=== PATIENT | female | born 1950 | race Hispanic/Latino ===

== ENCOUNTER 2021-07-20 10:41 | Emergency (ER) | payer MEDICARE ==
[~2021-07-20] VITALS: Ht 152.4 cm; Wt 60.1 kg
[2021-07-20] MEDS ORDERED: ARMOUR THYROID30 MG (10:59)
[2021-07-20] MEDS ORDERED: CEFTRIAXONE 1 GM VIAL IM ONE (12:00)
[2021-07-20] MEDS ORDERED: DEXAMETHASONE SOD PHOS 10 MG/1 ML VIAL IM ONE (12:00)
[2021-07-20] MEDS ORDERED: CEFDINIR300 MG PO (12:03)
[2021-07-20] MEDS ORDERED: TESSALON PERLE100 MG PO (12:03)
[2021-07-20] MEDS ORDERED: NASONEX17 GM (12:03)
[2021-07-20] MEDS ORDERED: DEXAMETHASONE SOD PHOS INJ 4 MG/ML SDV ONE (12:12)
[2021-07-20] MEDS ORDERED: CEFTRIAXONE 1 GM VIAL ONE (12:12)
== END 2021-07-20 12:18 | disposition home or self-care (01) ==
LOC: FSED 10:45
DX: R05 Cough (principal); J20.9 Acute bronchitis, unspecified; J01.90 Acute sinusitis, unspecified; I10 Essential (primary) hypertension; E03.9 Hypothyroidism, unspecified
CPT/HCPCS: 70140; 71046; 96372; 99283; J0696; J1100 ×2

== ENCOUNTER 2021-07-25 13:27 | Emergency (ER) | payer MEDICARE ==
[~2021-07-25] VITALS: Ht 152.4 cm; Wt 59.9 kg
[~2021-07-25 13:27] MED LIST: ARMOUR THYROID30 MG; CEFDINIR300 MG PO; NASONEX17 GM; TESSALON PERLE100 MG PO
[2021-07-25] MEDS ORDERED: CEFTRIAXONE 1 GM VIAL IM ONE (15:00)
[2021-07-25] MEDS ORDERED: PIPERACILLIN/TAZOBACTAM 3.375 GM in SODIUM CHLORIDE 0.9% 50ML 50 ML IV ONE (15:00)
[2021-07-25] MEDS ORDERED: ZITHROMAX250 MG PO (15:08)
[2021-07-25] MEDS ORDERED: LEVOFLOXACIN250 MG PO (15:08)
[2021-07-25] MEDS ORDERED: CEFTRIAXONE 1 GM VIAL ONE (15:13)
[2021-07-25] MEDS ORDERED: LIDOCAINE HCL 2% LOCAL 20 ML VIAL ONE (15:13)
== END 2021-07-25 15:37 | disposition home or self-care (01) ==
LOC: FSED 13:54
DX: U07.1 COVID-19 (principal); J12.82 Pneumonia due to coronavirus disease 2019; R05 Cough; I10 Essential (primary) hypertension; E03.9 Hypothyroidism, unspecified
CPT/HCPCS: 71045; 99283; J0696; J2001; U0002

== ENCOUNTER 2021-08-01 10:11 | Emergency (ER) | payer MEDICARE ==
[~2021-08-01] VITALS: Ht 152.4 cm; Wt 60.5 kg
[~2021-08-01 10:11] MED LIST changes: +LEVOFLOXACIN250 MG PO; +ZITHROMAX250 MG PO
[2021-08-01] MEDS ORDERED: DEXAMETHASONE PHOS 4MG/ML 5ML MULTIDOSE VIAL INJ ONE (10:30)
[2021-08-01] MEDS ORDERED: DEXAMETHASONE SOD PHOS INJ 4 MG/ML SDV ONE (10:46)
[2021-08-01] MEDS ORDERED: AUGMENTIN 500-1 EACH PO (11:02)
[2021-08-01] MEDS ORDERED: AFRIN30 ML INH (11:02)
[2021-08-01] MEDS ORDERED: VENTOLIN HFA18 GM INH (11:02)
[2021-08-01] MEDS ORDERED: PREDNISONE20 MG PO (11:02)
== END 2021-08-01 11:06 | disposition home or self-care (01) ==
LOC: FSED 10:15
DX: U07.1 COVID-19 (principal); J12.82 Pneumonia due to coronavirus disease 2019; R50.9 Fever, unspecified; I10 Essential (primary) hypertension; E03.9 Hypothyroidism, unspecified
CPT/HCPCS: 71045; 96372; 99283; J1100; 93005

== ENCOUNTER 2022-04-17 20:54 | Emergency (ER) | payer MEDICARE ==
[~2022-04-17] VITALS: Ht 152.4 cm; Wt 61.2 kg
[~2022-04-17 20:54] MED LIST changes: +AFRIN30 ML INH; +AUGMENTIN 500-1 EACH PO; +PREDNISONE20 MG PO; +VENTOLIN HFA18 GM INH
[2022-04-17] MEDS ORDERED: AUGMENTIN 500-1 EACH PO (23:51)
[2022-04-18 00:02] VITALS: BP 143/78
== END 2022-04-17 23:58 | disposition home or self-care (01) ==
LOC: FSED 21:00
DX: R51.9 Headache, unspecified (principal); J01.90 Acute sinusitis, unspecified; I10 Essential (primary) hypertension; E03.9 Hypothyroidism, unspecified
CPT/HCPCS: 70140; 74018

== ENCOUNTER 2022-06-07 09:05 | Emergency (ER) | payer MEDICARE ==
[~2022-06-07] VITALS: Ht 152.4 cm; Wt 61.2 kg
[2022-06-07] MEDS ORDERED: CLEOCIN HCL300 MG PO (09:35)
[2022-06-07] MEDS ORDERED: MUPIROCIN22 GM TOP (09:35)
== END 2022-06-07 09:48 | disposition home or self-care (01) ==
LOC: FSED 09:15
DX: L02.214 Cutaneous abscess of groin (principal); I10 Essential (primary) hypertension; E03.9 Hypothyroidism, unspecified
CPT/HCPCS: 99282

== ENCOUNTER 2022-08-21 21:39 | Emergency (ER) | payer MEDICARE ==
[~2022-08-21] VITALS: Ht 152.4 cm; Wt 63.5 kg
[~2022-08-21 21:39] MED LIST changes: +CLEOCIN HCL300 MG PO; +MUPIROCIN22 GM TOP
[2022-08-21] MEDS ORDERED: LORAZEPAM 1 MG TAB PO ONE (22:00)
[2022-08-21] MEDS ORDERED: LORAZEPAM 0.5 MG TAB ONE (22:19)
[2022-08-21 22:43] VITALS: BP 146/76
== END 2022-08-21 22:43 | disposition home or self-care (01) ==
LOC: FSED 21:56
DX: R55 Syncope and collapse (principal); F41.9 Anxiety disorder, unspecified; I10 Essential (primary) hypertension; E03.9 Hypothyroidism, unspecified
CPT/HCPCS: 80048; 85025; 93005; 99283

== ENCOUNTER 2022-11-18 19:02 | Emergency (ER) | payer MEDICARE ==
[~2022-11-18] VITALS: Ht 152.4 cm; Wt 65.3 kg
[2022-11-18] MEDS ORDERED: LACTATED RINGER'S 1,000 ML INJ STA (19:18)
[2022-11-18] MEDS ORDERED: KETOROLAC TROMETHAMINE 30 MG/ML VIAL IV STA (19:18)
[2022-11-18] MEDS ORDERED: ACETAMINOPHEN 325 MG TAB PO ONE (19:30)
[2022-11-18] MEDS ORDERED: ACETAMINOPHEN 325 MG TAB ONE (19:37)
[2022-11-18] MEDS ORDERED: KETOROLAC TROMETHAMINE 30 MG/ML VIAL ONE (19:37)
[2022-11-18] MEDS ORDERED: LACTATED RINGER'S 1,000 ML ONE (19:37)
[2022-11-18 19:38] LABS: BASOPHILS % 0.6 % (0.0-1.0); EOSINOPHILS # (AUTO) 0.2 (0.0-0.4); EOSINOPHILS % 2.6 % (0.0-6.0); HEMOGLOBIN 13.8 g/dL (12.0-16.0); LYMPHOCYTES # (AUTO) 2.6 (1.0-3.2); LYMPHOCYTES % 37.1 % (18.0-39.1); MEAN CORPUSCULAR HEMOGLOBIN 31.4 pg (28-32); MEAN CORPUSCULAR HGB CONC 32.9 g/dL (31-35); MEAN CORPUSCULAR VOLUME 95.7 fL (81-99); MONOCYTES # (AUTO) 0.5 (0.2-0.8); MONOCYTES % 6.9 % (4.4-11.3); NEUTROPHILS # (AUTO) 3.7 (2.1-6.9); NEUTROPHILS % 52.5 % (38.7-80.0); PLATELET COUNT 235 x10e3/uL (140-360); RED BLOOD COUNT 4.39 x10e6/uL (3.6-5.1); RED CELL DISTRIBUTION WIDTH 12.7 % (11.7-14.4)
[2022-11-18 19:56] LABS: ALBUMIN 4.4 g/dL (3.5-5.0); ALBUMIN/GLOBULIN RATIO 1.6 (0.8-2.0); ANION GAP 14.9 mmol/L (8-16); CALCIUM 9.6 mg/dL (8.4-10.2); CREATININE, SERUM 0.84 mg/dL (0.57-1.11); POTASSIUM 3.9 mmol/L (3.5-5.1)
[2022-11-18 19:57] LABS: MAGNESIUM 2.1 MG/DL (1.3-2.1)
== END 2022-11-18 20:20 | disposition home or self-care (01) ==
LOC: FSED 19:07
DX: M62.838 Other muscle spasm (principal); I10 Essential (primary) hypertension; E03.9 Hypothyroidism, unspecified
CPT/HCPCS: 36415; 80053; 82550; 83735; 85025; 99283; J1885; J7121

== ENCOUNTER 2022-11-21 19:55 | Emergency (ER) | payer MEDICARE ==
[~2022-11-21] VITALS: Ht 152.4 cm; Wt 65.3 kg
[2022-11-21] MEDS ORDERED: IOPAMIDOL 370 MG/ML 100 ML INFUS..BTL INJ ONE (20:31)
== END 2022-11-21 22:14 | disposition home or self-care (01) ==
LOC: FSED 20:10
DX: R07.89 Other chest pain (principal); I10 Essential (primary) hypertension; E03.9 Hypothyroidism, unspecified; F41.9 Anxiety disorder, unspecified
CPT/HCPCS: 71260; 80053; 82553; 84484; 85025; 93005; 99284; Q9967